=== PATIENT | female | born 1935 | race Caucasian/White ===

== ENCOUNTER 2017-02-09 10:28 | Outpatient (CLI) | payer MEDICARE ==
[2017-02-09 10:55] LABS: #Basophils 0.1 thou/uL (0.0-0.2); #Eosinphils 0.1 thou/uL (0.0-0.7); #Lymphocytes 2.4 thou/uL (1.20-3.40); #Monocytes 0.6 thou/uL (0.11-0.59); #Neutrophils 4.4 thou/uL (1.40-6.50); %Basophils 1.2 % (0.0-1.0); %Eosinophils 1.8 % (0.0-10.0); %Lymphocytes 31.7 % (21.0-51.0); %Monocytes 7.7 % (0.0-10.0); %Neutrophils 57.5 % (42.0-75.0); Hemoglobin 16.6 g/dL (12.0-16.0); Mean Corpuscular HGB CONC 34.1 g/dL (32.0-36.0); Mean Corpuscular Hemoglobin 31.9 pg (27.0-31.0); Mean Corpuscular Volume 93.5 fl (81.0-99.0); Mean Platelet Volume 9.6 fL (7.4-10.4); Platelet Count 204 thou/uL (130-400); RBC Distribution Width 12.1 % (11.5-14.5); Red Blood Cell (RBC) Count 5.21 mill/uL (4.20-5.40); White Blood Cell (WBC) Count 7.6 thou/uL (4.8-10.8)
[2017-02-09 11:31] LABS: ALT (SGPT) 23 U/L (8-55); AST (SGOT) 19 U/L (5-34); Albumin 4.4 g/dL (3.4-4.8); Alkaline Phosphatase 65 U/L (40-150); Anion Gap 18 mmol/L (10-20); BUN (Urea Nitrogen) 17 mg/dL (9.8-20.1); Calc. Creatinine Clearance 0 mL/min (70-130); Calcium 10.2 mg/dL (7.8-10.44); Carbon Dioxide 26 mmol/L (23-31); Cardiac Risk 4.9 (Less than 4.5); Chloride 102 mmol/L (98-107); Cholesterol 153 mg/dl (< 200 Desired); Estimated GFR-MDRD 51; Globulin 2.8 g/dL (2.4-3.5); Glucose 124 mg/dL (83-110); HDL Cholesterol 31 mg/dL (>60 Neg Risk); LDL Cholesterol, Calculated 59 mg/dL; Potassium 3.7 mmol/L (3.5-5.1); Protein, Total 7.2 g/dL (6.0-8.3); Sodium 142 mmol/L (136-145); Triglycerides 315 mg/dL (Less than 150)
== END 2017-02-09 10:29 ==
LOC: HPCALD 10:28
PROVIDERS: ATTEND Family Medicine
DX: E78.5 Hyperlipidemia, unspecified (principal); E55.9 Vitamin D deficiency, unspecified; I10 Essential (primary) hypertension
CPT/HCPCS: 36415; 80053; 80061; 82306; 85025

== ENCOUNTER 2017-03-09 16:16 | Outpatient (CLI) | payer MEDICARE ==
[2017-03-09 16:59] LABS: Hemoglobin A1c 5.5 % (4.0-6.0)
[2017-03-09 17:23] LABS: Free T4 (Free Thyroxine) 1.02 ng/dL (0.70-1.48); Thyroid Stimulating Hormone 3.1199 uIU/mL (0.35-4.94)
== END 2017-03-09 16:17 | disposition home or self-care (01) ==
LOC: HPCALD 16:16
PROVIDERS: ATTEND Family Medicine
DX: N39.0 Urinary tract infection, site not specified (principal); R73.9 Hyperglycemia, unspecified; E89.0 Postprocedural hypothyroidism
CPT/HCPCS: 36415; 83036; 84439; 84443; 87086

== ENCOUNTER 2019-01-30 12:05 | Outpatient (CLI) | payer MEDICARE ==
--- NOTE | 2019-01-30 18:15 | RAD ---
CHEST TWO VIEWS: 01/30/19 Comparison is made with an 08/10/16 study. The heart is upper normal in size but not substantially different than before. There is no congestive change or pleural effusion. No focal pulmonary infiltrate was seen. Haziness over the lower lungs is probably due to the overlying soft tissues. There is dense calcification of the aortic arch. IMPRESSION: No acute thoracic finding. POS: HOME
== END 2019-01-30 12:06 | disposition home or self-care (01) ==
LOC: BURRAD 12:05
PROVIDERS: ATTEND Family Medicine
DX: R07.9 Chest pain, unspecified (principal)
CPT/HCPCS: 71046